=== PATIENT | male | born 1975 | race Caucasian/White ===

== ENCOUNTER 2019-06-04 18:45 | Emergency (ER) | payer BC ==
[2019-06-04] MEDS ORDERED: FAMOTIDINE 20 MG/2 ML VIAL IVP ONE (19:15)
[2019-06-04] MEDS ORDERED: IV NORMAL SALINE 1,000ML 1,000 ML IV ONE (19:15)
[2019-06-04] MEDS ORDERED: ONDANSETRON PF 4 MG/2 ML VIAL. IVP ONE (19:15)
[2019-06-04] MEDS ORDERED: IOHEXOL 300 MG/ML 75 ML VIAL. IV ONE (19:30)
[2019-06-04] MEDS ORDERED: IOHEXOL 240 MG/ML 50ML VIAL. PO ONE (19:30)
[2019-06-04 19:40] LABS: BASO # 0.1 x10^3/uL (0.0-0.2); BASO % 1 % (0-3); EOS # 0.3 x10^3/uL (0.0-0.7); EOS % 3 % (0-3); HEMATOCRIT 42.5 % (39.0-53.0); HEMOGLOBIN 14.6 g/dL (13.0-17.5); LYMPH # 3.3 x10^3/uL (1.0-4.8); LYMPH % 34 % (24-48); MEAN CORPUSCULAR HEMOGLOBIN 33 pg (25-35); MEAN CORPUSCULAR HGB CONC 34 g/dL (31-37); MEAN CORPUSCULAR VOLUME 97 fL (79-100); MONO # 0.6 x10^3/uL (0.0-1.1); MONO % 6 % (0-9); NEUT # 5.4 x10^3uL (1.8-7.7); NEUT % 56 % (31-73); PLATELET COUNT 204 x10^3/uL (140-400); RED BLOOD COUNT 4.38 x10^6/uL (4.30-5.70); RED CELL DISTRIBUTION WIDTH 13.1 % (11.5-14.5); WHITE BLOOD COUNT 9.7 x10^3/uL (4.0-11.0)
[2019-06-04 19:47] LABS: ALBUMIN 3.8 g/dL (3.4-5.0); ALBUMIN/GLOBULIN RATIO 1.1 (1.0-1.7); CALCIUM 8.7 mg/dL (8.5-10.1); CREATININE 1.4 mg/dL (0.7-1.3); GFR 55.6; MAGNESIUM 2.1 mg/dL (1.8-2.4); POTASSIUM 3.9 mmol/L (3.5-5.1); TOTAL BILIRUBIN 0.3 mg/dL (0.2-1.0); TOTAL PROTEIN 7.4 g/dL (6.4-8.2)
--- NOTE | 2019-06-04 21:23 | RAD ---
CT abdomen and pelvis with contrast PQRS statement: CT scans at this facility use dose reduction including either automated exposure control, iterative reconstructions, and /or weight based radiation dosing via mA and kV modification when appropriate to reduce radiation dose to as low as reasonably achievable. HISTORY: Right-sided abdominal pain and hematochezia. TECHNIQUE: Helical CT imaging abdomen and pelvis with oral contrast and 75 mL Omnipaque 300 intravenous contrast. Abdomen findings: Liver, gallbladder, pancreas, adrenal glands, spleen and kidneys are unremarkable. There is stranding at the lateral pericecal fat along the wall of the lateral cecum as well as surrounding the tip of the appendix. In light of this the appendix is not dilated with a diameter 3 mm including the tip of the appendix. The stranding appears to somewhat surrounds a small lobule of fat best demonstrated on sagittal image 58 and axial image 41, raising the possibility of omental infarct or epiploic meningitis rather than tip appendicitis. No obvious cecal diverticulum to suggest diverticulitis. No bowel obstruction. No abdominal fluid or abscess. Left colonic diverticulosis. No adenopathy. Pelvis findings: Bladder, prostate, rectum and bones are unremarkable. No fluid or adenopathy. IMPRESSION: Pericecal fat edema with stranding lateral of the cecum which surrounds the tip of the appendix as well as a small lobule of fat. While this could represent early changes of tip appendicitis, the appendix has a normal diameter of 3 mm without distention or obvious direct inflammatory changes of the wall of the appendix. A fat infarction of the omentum is also a consideration for these findings as the edema appears to surround a central fat density. Cecal diverticulitis with be a consideration but is considered less likely as no obvious inflamed diverticulum is evident. Electronically signed by: Bharath Clarke MD (06/04/2019 9:20 PM) [facility]
--- NOTE | 2019-06-04 21:30 | PHYS DOC ---
Past History Past Medical History: No Pertinent History Past Surgical History: No Surgical History Smoking: Non-smoker Alcohol Use: None Drug Use: None Adult General Chief Complaint Chief Complaint: BLOODY STOOL HPI HPI 44-year-old male presents with report of lower abdominal pain times one day. Reports noticed yesterday some bright red blood with stool and now today appears darker. Denies rectal pain. Denies fever or chills. Denies nausea or vomiting. Denies trauma. Review of Systems Review of Systems Constitutional: Denies fever or chills Eyes: Denies redness or eye pain HENT: Denies nasal congestion or sore throat Respiratory: Denies cough or shortness of breath Cardiovascular: Denies chest pain or palpitations GI: Reports abdominal pain; denies nausea, vomiting, or constipation; reports bloody stools : Denies dysuria or hematuria Musculoskeletal: Denies back pain or joint pain Integument: Denies rash or skin lesions Neurologic: Denies headache, focal weakness or sensory changes Complete systems were reviewed and found to be within normal limits, except as documented in this note. Current Medications Current Medications Current Medications Medications (Trade) Dose Ordered Sig/Florentino Start Time Stop Time Status Last Admin Dose Admin Famotidine (Pepcid Vial) 20 mg 1X ONCE 06/04/19 19:15 06/04/19 19:28 DC 06/04/19 19:15 20 MG Iohexol (Omnipaque 240 Mg/ml) 30 ml 1X ONCE 06/04/19 19:30 06/04/19 19:41 DC 06/04/19 20:53 30 ML Iohexol (Omnipaque 300 Mg/ml) 75 ml 1X ONCE 06/04/19 19:30 06/04/19 19:41 DC 06/04/19 20:53 75 ML Ondansetron HCl (Zofran) 4 mg 1X ONCE 06/04/19 19:15 06/04/19 19:28 DC 06/04/19 19:15 4 MG Sodium Chloride 1,000 ml @ 1,000 mls/hr 1X ONCE 06/04/19 19:15 06/04/19 20:14 DC 06/04/19 19:15 1,000 MLS/HR Allergies Allergies Allergies Coded Allergies Type Severity Reaction Last Updated Verified No Known Drug Allergies 06/04/19 No Physical Exam Physical Exam Constitutional: Well developed, well nourished, no acute distress, non-toxic appearance HENT: Normocephalic, atraumatic, oropharynx moist Eyes: Conjunctiva normal, no discharge Neck: Normal range of motion, no tenderness, supple Cardiovascular: Heart rate normal, regular rhythm Lungs & Thorax: Bilateral breath sounds clear to auscultation, no wheezing Abdomen: Soft, mild bilateral lower quadrant tenderness, no rebound tenderness/distention/guarding Skin: Warm, dry, no erythema, no rash Back: No tenderness, no CVA tenderness Extremities: No tenderness, ROM intact, no edema Neurologic: Alert and oriented X 3, normal motor function, normal sensory function, no focal deficits noted Psychologic: Affect normal, judgement normal Current Patient Data Vital Signs Vital Signs Date Time Temp Pulse Resp B/P (MAP) Pulse Ox O2 Delivery O2 Flow Rate FiO2 06/04/19 19:09 99.1 78 18 96 Room Air 06/04/19 19:03 115/72 (86) Lab Results Laboratory Tests Test 06/04/19 19:30 06/04/19 19:40 White Blood Count 9.7 x10^3/uL (4.0-11.0) Red Blood Count 4.38 x10^6/uL (4.30-5.70) Hemoglobin 14.6 g/dL (13.0-17.5) Hematocrit 42.5 % (39.0-53.0) Mean Corpuscular Volume 97 fL (79-100) Mean Corpuscular Hemoglobin 33 pg (25-35) Mean Corpuscular Hemoglobin Concent 34 g/dL (31-37) Red Cell Distribution Width 13.1 % (11.5-14.5) Platelet Count 204 x10^3/uL (140-400) Neutrophils (%) (Auto) 56 % (31-73) Lymphocytes (%) (Auto) 34 % (24-48) Monocytes (%) (Auto) 6 % (0-9) Eosinophils (%) (Auto) 3 % (0-3) Basophils (%) (Auto) 1 % (0-3) Neutrophils # (Auto) 5.4 x10^3uL (1.8-7.7) Lymphocytes # (Auto) 3.3 x10^3/uL (1.0-4.8) Monocytes # (Auto) 0.6 x10^3/uL (0.0-1.1) Eosinophils # (Auto) 0.3 x10^3/uL (0.0-0.7) Basophils # (Auto) 0.1 x10^3/uL (0.0-0.2) Prothrombin Time 10.1 SEC (9.4-11.4) Prothrombin Time INR 1.0 (0.9-1.1) Activated Partial Thromboplast Time 28 SEC (23-33) Sodium Level 139 mmol/L (136-145) Potassium Level 3.9 mmol/L (3.5-5.1) Chloride Level 102 mmol/L (98-107) Carbon Dioxide Level 27 mmol/L (21-32) Anion Gap 10 (6-14) Blood Urea Nitrogen 19 mg/dL (8-26) Creatinine 1.4 mg/dL (0.7-1.3) H Estimated GFR (Cockcroft-Gault) 55.6 BUN/Creatinine Ratio 14 (6-20) Glucose Level 94 mg/dL (70-99) Calcium Level 8.7 mg/dL (8.5-10.1) Magnesium Level 2.1 mg/dL (1.8-2.4) Total Bilirubin 0.3 mg/dL (0.2-1.0) Aspartate Amino Transferase (AST) 18 U/L (15-37) Alanine Aminotransferase (ALT) 34 U/L (16-63) Alkaline Phosphatase 116 U/L (46-116) Total Protein 7.4 g/dL (6.4-8.2) Albumin 3.8 g/dL (3.4-5.0) Albumin/Globulin Ratio 1.1 (1.0-1.7) Lipase 414 U/L (73-393) H EKG EKG [] Radiology/Procedures Radiology/Procedures PROCEDURE: CT ABD PELV W/ORAL&IV CONTRAST CT abdomen and pelvis with contrast PQRS statement: CT scans at this facility use dose reduction including either automated exposure control, iterative reconstructions, and /or weight based radiation dosing via mA and kV modification when appropriate to reduce radiation dose to as low as reasonably achievable. HISTORY: Right-sided abdominal pain and hematochezia. TECHNIQUE: Helical CT imaging abdomen and pelvis with oral contrast and 75 mL Omnipaque 300 intravenous contrast. Abdomen findings: Liver, gallbladder, pancreas, adrenal glands, spleen and kidneys are unremarkable. There is stranding at the lateral pericecal fat along the wall of the lateral cecum as well as surrounding the tip of the appendix. In light of this the appendix is not dilated with a diameter 3 mm including the tip of the appendix. The stranding appears to somewhat surrounds a small lobule of fat best demonstrated on sagittal image 58 and axial image 41, raising the possibility of omental infarct or epiploic meningitis rather than tip appendicitis. No obvious cecal diverticulum to suggest diverticulitis. No bowel obstruction. No abdominal fluid or abscess. Left colonic diverticulosis. No adenopathy. Pelvis findings: Bladder, prostate, rectum and bones are unremarkable. No fluid or adenopathy. IMPRESSION: Pericecal fat edema with stranding lateral of the cecum which surrounds the tip of the appendix as well as a small lobule of fat. While this could represent early changes of tip appendicitis, the appendix has a normal diameter of 3 mm without distention or obvious direct inflammatory changes of the wall of the appendix. A fat infarction of the omentum is also a consideration for these findings as the edema appears to surround a central fat density. Cecal diverticulitis with be a consideration but is considered less likely as no obvious inflamed diverticulum is evident. Electronically signed by: Bharath Clarke MD (06/04/2019 9:20 PM) [facility] Course & Med Decision Making Course & Med Decision Making Pertinent Labs and Imaging studies reviewed. (See chart for details) Patient presents with report of lower abdominal pain with reported bloody stools. Afebrile. Abdomen non-peritoneal. Labs obtained and posted to chart. WBC and H&H stable. CT abdomen/pelvis with findings suggestive of epiploic appendagitis vs diverticulitis vs colitis. Pain addressed with Ketoralac. IVF hydration given. Cannot fully exclude infectious etiology although WBC WNL. Empiric antibiotics given. Patient stable for discharge with outpatient follow-up with PCP/GI. GI referral provided. Discussed findings and plan with patient, who acknowledges understanding and agreement. Surendra Disclaimer Surendra Disclaimer This electronic medical record was generated, in whole or in part, using a voice recognition dictation system. Departure Departure: Impression: Primary Impression: Appendicitis epiploica Additional Impression: Bloody stools Disposition: HOME, SELF-CARE Condition: STABLE Referrals: ANTELMO MCCALL (PCP) NEL SHAW MD Patient Instructions: Abdominal Pain (Nonspecific), Bloody Stools, [id number] Scripts Ciprofloxacin Hcl (CIPRO) 500 Mg Tablet 1 TAB PO BID for Colitis for 7 Days, #14 TAB Prov: JESSICA JUSTICE DO 06/04/19 Metronidazole (FLAGYL) 500 Mg Tablet 1 TAB PO TID for Colitis for 7 Days, #21 TAB Prov: JESSICA JUSTICE DO 06/04/19 Prednisone (PREDNISONE) 20 Mg Tablet 2 TAB PO DAILY for inflammation, #10 TAB Prov: JESSICA JUSTICE DO 06/04/19 Ondansetron (ONDANSETRON ODT) 4 Mg Tab.rapdis 1 TAB PO PRN Q6-8HRS PRN for NAUSEA, #16 TAB Prov: JESSICA JUSTICE DO 06/04/19 Problem Qualifiers JESSICA JUSTICE DO Jun 04, 2019 21:30
[2019-06-04 21:35] LABS: BACTERIA,URINE 0 /HPF (0-FEW); BILIRUBIN,URINE NEG (NEG); CLARITY,URINE CLEAR; GLUCOSE,URINE NEG (NEG); NITRITE,URINE NEG (NEG); RBC,URINE 0 /HPF (0-2); SQUAMOUS EPITHELIAL CELL,UR OCC /LPF; UROBILINOGEN,URINE 0.2 mg/dL (0.2 mg/dL); WBC,URINE OCC /HPF (0-4)
[2019-06-04 21:36] LABS: COLOR,URINE STRAW
[2019-06-04] MEDS ORDERED: PRED20TA PO (21:39)
[2019-06-04] MEDS ORDERED: ONDA4TAB12 PO (21:39)
[2019-06-04] MEDS ORDERED: CIPROFLOXACIN HCL 500 MG TABLET PO ONE (21:45)
[2019-06-04] MEDS ORDERED: metroNIDAZOLE 500 MG TABLET PO ONE (21:45)
[2019-06-04] MEDS ORDERED: METR500T PO (21:48)
[2019-06-04] MEDS ORDERED: CIPR500T94 PO (21:48)
[2019-06-04 22:01] VITALS: BP 126/77
== END 2019-06-04 22:03 | disposition home or self-care (01) ==
LOC: ER 18:45
DX: K63.89 Other specified diseases of intestine (principal); K92.1 Melena
CPT/HCPCS: 36415; 74177; 80053; 81001; 83690; 83735; 85025; 85610; 85730; 96374; 96375; 99285; J2405; J3490; Q9966; Q9967; J7030